=== PATIENT | male | born 1995 | race African-American/Black ===

== ENCOUNTER 2018-09-17 21:58 | Emergency (ER) | payer OTHER ==
[~2018-09-17] VITALS: Ht 188 cm; Wt 115.7 kg
[2018-09-17 22:14] VITALS: BP_SYST 117
--- NOTE | 2018-09-17 22:17 | NUR ---
Pt placed to ER waiting room in stable condition.
--- NOTE | 2018-09-17 22:35 | NUR ---
Pt ambulatory to bed 4 for evaluation
--- NOTE | 2018-09-17 22:36 | NUR ---
Pt [id number] came in with complaint of sharp epigastric pain 04/02. No headache noted. No ofever. VSS. Safety precaution observed. Will continue to monitor Pt.
[2018-09-17] MEDS ORDERED: NACL 0.9% 1,000 ML IV ONE (22:58)
[2018-09-17] MEDS ORDERED: ONDANSETRON HCL 4 MG/2 ML VIAL IVP ONE (23:00)
[2018-09-17] MEDS ORDERED: MORPHINE 4 MG/ML INJ. SYRINGE IM ONE (23:00)
--- NOTE | 2018-09-17 23:00 | NUR ---
# 20 gauge angiocath placed to LAC. Use of asceptic technique. Opsite placed over site. Blood return noted. Blood for lab drawn from site. Flushed with 10 cc of normal saline. No evidence of infiltration noted. Patient tolerated well.
[2018-09-17 23:19] LABS: BILIRUBIN,URINE NEGATIVE (NEGATIVE); BLOOD, URINE NEGATIVE (NEGATIVE); CLARITY/URINE CLEAR (CLEAR); COLOR,URINE YELLOW (YELLOW); GLUCOSE,URINE NEGATIVE (NEGATIVE); KETONES,URINE NEGATIVE (NEGATIVE); LEUKOCYTE ESTERASE ,URINE NEGATIVE (NEGATIVE); NITRITE, URINE NEGATIVE (NEGATIVE); PROTEIN URINE TRACE (NEGATIVE); UROBILINOGEN,URINE 0.2 (0.2-1.0)
[2018-09-17 23:40] LABS: CALCIUM 8.4 mg/dL (8.4-11.0); CREATININE 1.04 mg/dL (0.55-1.30); POTASSIUM 3.9 mmol/L (3.5-5.1)
[2018-09-17 23:44] LABS: ALBUMIN 3.7 g/dL (3.4-4.8); PROTHROMBIN TIME 10.4 SECS (9.5-12.5); RED BLOOD CELL COUNT(AUTO) 5.02 MIL/uL (4.2-6.2); TOTAL BILIRUBIN 0.4 mg/dL (0.0-1.0); WHITE BLOOD COUNT (AUTO) 4.7 K/uL (4.8-10.8)
[2018-09-17 23:45] LABS: HEMATOCRIT 41.8 % (36-54); MEAN CORPUSCULAR HEMOGLOBIN 28 pg (27-31); MEAN CORPUSCULAR HGB CONC 34 % (32-36); MEAN CORPUSCULAR VOLUME 83 fL (79.0-98.0); PLATELET COUNT (AUTO) 166 K/uL (130-430); RED CELL DISTRIBUTION WIDTH 12.9 % (9.0-15.0)
[2018-09-17 23:46] LABS: BASOPHILS % (AUTO) 0.5 % (0.0-2.0); EOSINOPHILS % (AUTO) 0.3 % (0.0-4.0); LYMPHOCYTES # (AUTO) 2.2 K/uL (1.0-5.5); LYMPHOCYTES % (AUTO) 47.8 % (20.5-51.5); MONOCYTES # (AUTO) 0.5 K/uL (0.0-1.0); MONOCYTES % (AUTO) 10.7 % (1.7-9.3); NEUTROPHILS # (AUTO) 1.9 K/uL (1.8-7.7); NEUTROPHILS % (AUTO) 40.7 % (40.0-70.0)
[2018-09-18] MEDS ORDERED: MAG HYDROX/AL HYDROX/SIMETH 30 ML, LIDOCAINE VISCOUS 2% 15ML (PO) 10 ML, BELLADONNA ALK... PO ONE ×3 (00:45)
[2018-09-18 01:36] VITALS: BP_SYST 121
--- NOTE | 2018-09-18 01:36 | NUR ---
Patient given written and verbal discharge instructions and verbalizes understanding. ER MD Landrum discussed with patient the results and treatment provided. Patient in stable condition. ID arm band removed. IV catheter removed intact and dressing applied, no active bleeding. Rx of protonix given. Patient educated on pain management and to follow up with PMD. Pain Scale 0/10. Opportunity for questions provided and answered. Medication side effect fact sheet provided.
== END 2018-09-18 01:36 | disposition home or self-care (01) ==
LOC: SED 21:58
DX: K29.70 Gastritis, unspecified, without bleeding (principal); Z90.89 Acquired absence of other organs
CPT/HCPCS: 36415; 80053; 81003; 82150; 83690; 85025; 85610; 96374; 96375; 99283; J2001; J2270; J2405; J7030